=== PATIENT | female | born 1975 | race African-American/Black ===

== ENCOUNTER → 2022-09-26 13:50 | Outpatient (BNVA) | payer OTHER, SELFPAY | PROVIDERS: PCP Internal Medicine; Visit Provider Nurse Practitioner Family | DX: M51.36 Other intervertebral disc degeneration, lumbar region (principal); M54.16 Radiculopathy, lumbar region; M62.830 Muscle spasm of back; M47.816 Spondylosis without myelopathy or radiculopathy, lumbar region; E66.01 Morbid (severe) obesity due to excess calories; Z68.42 Body mass index [BMI] 45.0-49.9, adult | CPT/HCPCS: 99202 ==

== ENCOUNTER 2023-03-21 12:43 | Day surgery (SDC) | payer OTHER, SELFPAY ==
--- NOTE | 2023-02-13 11:52 | HO.ANESPROP2 ---
HPI - Anesthesia Eval Consult details Narrative: 47yo F for Right L5-S1 Transforaminal Epidural Steriod Injection PMFSH Active Problems Active Problems: All Active Problems (Updated 09/27/22 @ 22:18 by KRISTAN Restrepo) Lumbar spondylosis (Acute) Morbid obesity with BMI of 45.0-49.9, adult (Acute) Muscle spasm of back (Acute) Lumbar back pain with radiculopathy affecting right lower extremity (Acute) Lumbar degenerative disc disease (Acute) Past Medical History Medical History (Updated 09/27/22 @ 22:18 by KRISTAN Restrepo) Asthma Hypertension Iron deficiency anemia Social History Social History (Updated 09/26/22 @ 14:21 by Farzaneh Maldonado) Alcohol intake: current Alcohol type: wine Tobacco use type: Cigarette Meds Allergies Allergy/AdvReac Type Severity Reaction Status Date / Time lisinopril AdvReac Unknown Angioedema Verified 09/26/22 14:00 Home Medications Medication Instructions Recorded Confirmed Last Taken Type albuterol sulfate 90 mcg/actuation 2 puff inhalation Q6H PRN 09/26/22 Unknown History aerosol inhaler (ProAir HFA) amlodipine 5 mg tablet 5 mg PO DAILY 09/26/22 Unknown History ascorbic acid (vitamin C) 500 mg mg PO 09/26/22 Unknown History capsule docusate sodium 100 mg capsule 100 mg PO TID 09/26/22 Unknown History ferrous sulfate 325 mg (65 mg 325 mg PO DAILY 09/26/22 Unknown History iron) tablet (Feosol) fluticasone propionate 44 2 puff inhalation BID 09/26/22 Unknown History mcg/actuation HFA aerosol inhaler (Flovent HFA) naproxen 500 mg tablet 500 mg PO BID 09/26/22 Unknown History norethindrone 1 mg-ethinyl 1 tab PO DAILY 09/26/22 Unknown History estradiol 35 mcg tablet (Alyacen) oxycodone 5 mg capsule 5 mg PO TID PRN 09/26/22 Unknown History Exam Exam Date and Time: February 13, 2023 1152 Assessment and Plan Assessment Anesthesia Assessment: Chart Reviewed
[2023-03-20 06:44] VITALS: BMI 49.6
--- NOTE | 2023-03-20 09:52 | P.CONAN_ITS ---
Documented by User: Felipa Carver NP 03/20/23 09:53 HPI - Anesthesia Eval Consult details Narrative: 47yo F for Right L5-S1 Transforaminal Epidural Steriod Injection PMFSH Active Problems Active Problems: All Active Problems (Updated 09/27/22 @ 22:18 by KRISTAN Restrepo) Lumbar spondylosis (Acute) Morbid obesity with BMI of 45.0-49.9, adult (Acute) Muscle spasm of back (Acute) Lumbar back pain with radiculopathy affecting right lower extremity (Acute) Lumbar degenerative disc disease (Acute) Past Medical History Medical History Asthma Hypertension Iron deficiency anemia Surgical History Surgical History (Updated 03/21/23 @ 13:09 by Carri Savage RN) Hx of breast reduction, elective Social History Social History (Updated 09/26/22 @ 14:21 by Farzaneh Maldonado) Alcohol intake: current Alcohol type: wine Patient Tobacco Use Status: Never used Tobacco Tobacco use type: Cigarette Use of substances other than those prescribed or required for medical reasons: Yes Substance Use Type Other:: gummies Substance Use Frequency: Occasionally Are you DNR?: No Advance Directives: No Advance Directives Information Provided: Yes Meds Allergies Allergy/AdvReac Type Severity Reaction Status Date / Time lisinopril AdvReac Unknown Angioedema Verified 03/21/23 13:35 Home Medications Medication Instructions Recorded Confirmed Last Taken Type albuterol sulfate 90 mcg/actuation 2 puff inhalation Q6H PRN 09/26/22 03/21/23 Unknown History aerosol inhaler (ProAir HFA) Shortness Of Breath Or Wheezing amlodipine 5 mg tablet (Norvasc) 5 mg PO DAILY 09/26/22 03/21/23 Unknown History ascorbic acid (vitamin C) 500 mg 500 mg PO DAILY 09/26/22 03/21/23 Unknown History capsule docusate sodium 100 mg capsule 100 mg PO TID 09/26/22 03/21/23 Unknown History ferrous sulfate 325 mg (65 mg 325 mg PO DAILY 09/26/22 03/21/23 Unknown History iron) tablet (Feosol) fluticasone propionate 44 2 puff inhalation BID 09/26/22 03/21/23 Unknown History mcg/actuation HFA aerosol inhaler (Flovent HFA) naproxen 500 mg tablet 500 mg PO BID 09/26/22 03/21/23 Unknown History norethindrone 1 mg-ethinyl 1 tab PO DAILY 09/26/22 03/21/23 03/21/23 08:00 History estradiol 35 mcg tablet (Alyacen) Exam Height,Weight and Vital Signs: Height 5 ft 4 in Weight 131.088 kg Assessment and Plan Assessment Anesthesia Assessment: Chart Reviewed Documented by User: Jaime Guevara MD 03/21/23 14:02 [facility] Past Medical History Medical History Asthma Hypertension Iron deficiency anemia Family History Family history of problems with anesthesia: No Surgical History Surgical History (Updated 03/21/23 @ 13:09 by Carri Savage RN) Hx of breast reduction, elective History of Problems with Anesthesia: No Social History Social History (Updated 09/26/22 @ 14:21 by Farzaneh Maldonado) Alcohol intake: current Alcohol type: wine Patient Tobacco Use Status: Never used Tobacco Tobacco use type: Cigarette Use of substances other than those prescribed or required for medical reasons: Yes Substance Use Type Other:: gummies Substance Use Frequency: Occasionally Are you DNR?: No Advance Directives: No Advance Directives Information Provided: Yes Meds Allergies Allergy/AdvReac Type Severity Reaction Status Date / Time lisinopril AdvReac Unknown Angioedema Verified 03/21/23 13:35 Home Medications Medication Instructions Recorded Confirmed Last Taken Type albuterol sulfate 90 mcg/actuation 2 puff inhalation Q6H PRN 09/26/22 03/21/23 Unknown History aerosol inhaler (ProAir HFA) Shortness Of Breath Or Wheezing amlodipine 5 mg tablet (Norvasc) 5 mg PO DAILY 09/26/22 03/21/23 Unknown History ascorbic acid (vitamin C) 500 mg 500 mg PO DAILY 09/26/22 03/21/23 Unknown History capsule docusate sodium 100 mg capsule 100 mg PO TID 09/26/22 03/21/23 Unknown History ferrous sulfate 325 mg (65 mg 325 mg PO DAILY 09/26/22 03/21/23 Unknown History iron) tablet (Feosol) fluticasone propionate 44 2 puff inhalation BID 09/26/22 03/21/23 Unknown History mcg/actuation HFA aerosol inhaler (Flovent HFA) naproxen 500 mg tablet 500 mg PO BID 09/26/22 03/21/23 Unknown History norethindrone 1 mg-ethinyl 1 tab PO DAILY 09/26/22 03/21/23 03/21/23 08:00 History estradiol 35 mcg tablet (Alyacen) Exam Airway Mallampati Class: II TM Dist: >3cm Neck ROM: Full Assessment and Plan Assessment Anesthesia Assessment: Anesthesia Plan Discussed Final Anesthetic Review Family History of Problems with Anesthesia: No History of Problems with Anesthesia: No NPO: Yes ASA Class: III Final Preanesthetic Review: No Changes in Pt Med Stat, Meds/Allgs Chart Reviewed, Consent Obtained/Reviewed and Anes Risks/Benef Reviewed Patient Risk: Low Procedure Risk: Low Anesthetic Plan Anesthetic Plan: MAC: Disposition: Standard PACU
--- NOTE | ~2023-03-21 | FL_ITS ---
EXAMINATION: XR FLUOROSCOPY WITH IMAGES CLINICAL INFORMATION: L5-S1 TFESI. COMPARISON: None available. TECHNIQUE: Fluoroscopy Supervised By: Dr. Miguel Angel Stanton. Fluoroscopy Time: 0.4 minutes. Cumulative Dose: 35.5 mGy. DAP: 9.18 Gycm2. Images: 1. FINDINGS: Image demonstrates needle placement and contrast injection adjacent to the right lateral L5 vertebrae FL/FL guidance in OR IMPRESSION: Fluoroscopy guidance for pain management procedure
[2023-03-21 13:35] VITALS: BP 155/97; PULSE 82; RESP 16; TEMP 37.2; O2SAT 98; BMI 48.0
[2023-03-21 13:38] LABS: UPreg QC Valid YES; Urine Pregnancy NEGATIVE (NEGATIVE)
[2023-03-21] MEDS: Lactated Ringers 1,000 ML 100 ML IVCONT (13:51)
--- NOTE | 2023-03-21 15:24 | MHC.SHP ---
Pre-Procedural Eval Section A Date of Service: 03/21/23 The patient is an INPATIENT: No Changes since office visit: Yes Patient answered all questions The History & Physical has been completed within 30 days and I have reviewed it.: No Section B Chief Complaint: Radiculopathy, lumbar region Details of Present Illness: as above Relevant Family History (Specify if Yes): No Relevant Social History: None Present Medications: None Medical History: No relevant PMH History of Previous Operations: No relevant previous surgery Allergies: Allergies Allergy/AdvReac Type Severity Reaction Status Date / Time lisinopril AdvReac Unknown Angioedema Verified 03/21/23 13:35 Review of Systems Sugical H&P ROS: Negative: Cardiovascular, Neurological, Psychiatric, Hem-Onc, Allergic/Immunologic, Gastrointestinal, Genitourinary, Integumentary, Endocrine and Eyes/Ears/Nose/Throat and Yes, Specify: Constitution ( morbid obesity), Respiratory ( asthma) and Musculoskeletal ( disc degeneration lumbar, radiculopathy lumbar) Exam Surgical H&P Exam: Normal: HEENT, Normal: Heart, Normal: Lungs, Normal: Extremities, Normal: Skin and Normal: Neurological and Significant Findings: Abdomen ( enlarged due to intra-abdominal and s/q fat) Plan Diagnosis/Plan: Unchanged I have reviewed the history and physical and performed a pertinent physical examination on my patient. No changes have occurred unless specified. Time Spent With Patient Time: Total time managing care of this patient today __5__ minutes.
--- NOTE | 2023-03-21 16:31 | P.BOP_ITS ---
Brief Operative Note Date of Service: 03/21/23 Pre-op diagnosis: Radiculopathy lumbar Post-op diagnosis: same Procedure: transforaminal epidural steroid injection L5-S1 on the right Implants: none Surgeon: Miguel Angel Stanton MD Was an Ice Cream Machine Operator used for this Procedure?: No Estimated blood loss (mL): 0 Condition: stable Disposition: PACU
--- NOTE | 2023-03-21 16:33 | P.OP_ITS ---
Operative Note Operative Note Date of Service: 03/21/23 Narrative: transforaminal epidural steroid injection L5-S1 on the right. Informed consent was explained to the patient. Risks and benefits were explained to the patient. The patient was explained that performing this procedure under minimal sedation would be more safe compared to the procedure performed under deep sedation. Patient expressed understanding. Patient was brought to the operating room and positioned prone on the operating table. [employer] monitors were applied and patient started to be sedated. However under minimal sedation patient became restless, unable to stand still on the operating table, was wiggling on the operating table throughout the procedure. Unfortunately deep sedation needed to be administered to the patient in the order to complete the procedure. The lower back of the patient was prepped with ChloraPrep and draped with sterile utility towels. However because patient was restless the prep needed to be repeated and draped needed to be reapplied. Finally at the dip level of the sedation patient was moving very minimally. Time-out was performed delineating correct site and side of the procedure. C-arm was brought of the operating field and sq picture of the patient's L5 vertebra demonstrated on the screen. Superior articular process of S1 on the right image was obtained on the screen was tilting C-arm 25 degrees to the right from the sq image of the L5 vertebra. Lateral border of the superior articular process of S1 was chosen as the target of the in needle insertion. 22 gauge 5 in needle was inserted through the skin and that was advancing to were the lateral border of the superior articular process of the S1 on the right in tunnel vision fashion. However when tip of the needle gently contacted the bone of the lateral border of L5 it became clear to us that the entire length of the needle 5 in are in the patient's body and needle is inserted all the way to the hub. The 5 in needle was removed and 7 in needle was obtained on the field. The advancement was repeated with 7 in needle until the tip of the needle gently contacted lateral border of S1 superior articular process. At this moment needle deviated laterally, advanced 2-3 mm, and then tip of the needle deviated medially to were the foramina. When sq image of the L5 lumbar vertebra was obtained on the screen the tip of the needle was in the projection of the spinal column however it was not crossing over mid pedicular line. Injection of the contrast was performed Demonstrating perineural and epidural spread of the contrast. After that injection solution of the lidocaine 1% 4 cc mixed with Kenalog 30 mg was injected into the foramina. After that the needle was withdrawn sterile Band-Aid applied. The patient was taking to the PACU for the recovery.
[2023-03-21 16:39] VITALS: BP 128/84; PULSE 90; RESP 17; TEMP 36.3; O2SAT 99
[2023-03-21 16:54] VITALS: BP 134/70; PULSE 75; RESP 18; TEMP 36.4; O2SAT 98
== END 2023-03-21 17:10 | disposition home or self-care (01) ==
PROVIDERS: Nurse Practitioner; PCP Internal Medicine; Visit Provider Anesthesiology
PROC: (CPT 64483; principal; 2023-03-21 14:30)
DX: M54.16 Radiculopathy, lumbar region (principal); M51.36 Other intervertebral disc degeneration, lumbar region; M54.50 Low back pain, unspecified; M62.830 Muscle spasm of back; M47.816 Spondylosis without myelopathy or radiculopathy, lumbar region; E66.01 Morbid (severe) obesity due to excess calories; Z68.42 Body mass index [BMI] 45.0-49.9, adult; I10 Essential (primary) hypertension; D50.9 Iron deficiency anemia, unspecified; J45.909 Unspecified asthma, uncomplicated; Z79.51 Long term (current) use of inhaled steroids; Z79.899 Other long term (current) drug therapy; Z88.8 Allergy status to other drugs, medicaments and biological substances; Z87.828 Personal history of other (healed) physical injury and trauma
CPT/HCPCS: 64483; 81025; J2704; J2795; J3301; Q9965

== ENCOUNTER → 2023-03-21 12:43 | Outpatient (BNV) | payer OTHER, SELFPAY | PROVIDERS: PCP Internal Medicine; Visit Provider Anesthesiology | DX: M54.16 Radiculopathy, lumbar region (principal) | CPT/HCPCS: 64483 ==

== ENCOUNTER → 2023-04-24 08:32 | Outpatient (BNVA) | payer OTHER, SELFPAY | PROVIDERS: PCP Internal Medicine; Visit Provider Anesthesiology ==

== ENCOUNTER → 2023-04-24 08:54 | Outpatient (AMB) | payer OTHER, SELFPAY ==
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
== END | disposition home or self-care (01) ==
LOC: HO.PMC 08:32
PROVIDERS: PCP Internal Medicine; Visit Provider Anesthesiology
DX: M51.36 Other intervertebral disc degeneration, lumbar region (principal); M54.16 Radiculopathy, lumbar region; M62.830 Muscle spasm of back; E66.01 Morbid (severe) obesity due to excess calories; Z68.42 Body mass index [BMI] 45.0-49.9, adult; M47.816 Spondylosis without myelopathy or radiculopathy, lumbar region
CPT/HCPCS: 99214

== ENCOUNTER 2024-06-28 09:20 | Outpatient (AMB) | payer OTHER, SELFPAY ==
--- NOTE | 2024-06-28 09:30 | MHC.OFFVIS ---
Vital Signs 06/28/24 09:35 Height 5 ft 4 in Weight 257 lb 2 oz BMI 44.1 BP 204/97 H Blood Pressure Location Lt brachial Respiration 18 Pulse 65 Pulse Source Pulse Oximeter Pulse Oximetry (%) 95 Oxygen Delivery Method Room Air Intake Visit Reasons: Mid to Lower Back Pain TERRANCE 04/24/23 Allergies lisinopril Adverse Reaction (Unknown, Verified 03/21/23 13:35) Angioedema PFSH Medical History Asthma Hypertension Iron deficiency anemia Surgical History (Updated 03/21/23 @ 13:09 by Carri Savage, KARIME) Hx of breast reduction, elective Social History (Updated 09/26/22 @ 14:21 by Farzaneh Maldonado) Alcohol intake: current Alcohol type: wine Patient Tobacco Use Status: Never used Tobacco Tobacco use type: Cigarette Physical Exam Vital Signs: Last Vital Signs Pulse 65 06/28/24 09:35 Resp 18 06/28/24 09:35 BP 204/97 H 06/28/24 09:35 Pulse Ox 95 06/28/24 09:35 Oxygen Delivery Method Room Air 06/28/24 09:35 BMI result Body Mass Index 44.1 Assessment & Plan Assessment & Plan (1) Lumbar degenerative disc disease: Code(s): M51.36 - Other intervertebral disc degeneration, lumbar region Category: Medical (2) Lumbar back pain with radiculopathy affecting right lower extremity: Code(s): M54.16 - Radiculopathy, lumbar region Category: Medical (3) Muscle spasm of back: Code(s): M62.830 - Muscle spasm of back Category: Medical (4) Morbid obesity with BMI of 45.0-49.9, adult: Code(s): E66.01 - Morbid (severe) obesity due to excess calories; Z68.42 - Body mass index [BMI] 45.0-49.9, adult Category: Medical (5) Lumbar spondylosis: Code(s): M47.816 - Spondylosis without myelopathy or radiculopathy, lumbar region Category: Medical Plan Right L5-S1 TFESI with sedation only and fluoroscopy resulted in excellent pain relief. She reports pain radiating into the right lower extremity completely disappeared and she still reports mild numbness in the right toes. She is informed that we can continue those injections if her pain will come back. Her axial back pain may be related to spondylosis. However she has extensive very large uterine fibroids which in my opinion should be treated before we would need to assign the issue of the lower back pain to spondylosis. Medial branch block can be offered to the patient if fibroid pain is ruled out. Justification for interventional therapy: ? Patient with average pain > 6/10 ? Patient has exhausted conservative therapy, NSAIDs ? Patient cannot participate in physical therapy due to significant pain The risks, consequences, alternatives, and benefits of various treatment options were discussed with the patient in great detail, including conservative management, injections and procedures. I informed patient of the hyperglycemic effects of steroids. Coding Diagnoses Lumbar degenerative disc disease M51.36 Lumbar back pain with radiculopathy affecting right lower extremity M54.16 Muscle spasm of back M62.830 Morbid obesity with BMI of 45.0-49.9, adult E66.01; Z68.42 Lumbar spondylosis M47.816
[2024-06-28 09:35] VITALS: BP 204/97; PULSE 65; RESP 18; O2SAT 95; BMI 44.1
--- NOTE | 2024-06-28 09:40 | MHC.OFFVIS ---
Vital Signs 06/28/24 09:35 Height 5 ft 4 in Weight 257 lb 2 oz BMI 44.1 BP 204/97 H Blood Pressure Location Lt brachial Respiration 18 Pulse 65 Pulse Source Pulse Oximeter Pulse Oximetry (%) 95 Oxygen Delivery Method Room Air Intake Visit Reasons: Mid to Lower Back Pain TERRANCE 04/24/23 Allergies lisinopril Adverse Reaction (Unknown, Verified 03/21/23 13:35) Angioedema PFSH Medical History Asthma Hypertension Iron deficiency anemia Surgical History (Updated 03/21/23 @ 13:09 by Carri Savage, KARIME) Hx of breast reduction, elective Social History (Updated 09/26/22 @ 14:21 by Farzaneh Maldonado) Alcohol intake: current Alcohol type: wine Patient Tobacco Use Status: Never used Tobacco Tobacco use type: Cigarette Physical Exam Vital Signs: Last Vital Signs Pulse 65 06/28/24 09:35 Resp 18 06/28/24 09:35 BP 204/97 H 06/28/24 09:35 Pulse Ox 95 06/28/24 09:35 Oxygen Delivery Method Room Air 06/28/24 09:35 BMI result Body Mass Index 44.1 Assessment & Plan Assessment & Plan (1) Lumbar degenerative disc disease: Code(s): M51.36 - Other intervertebral disc degeneration, lumbar region Category: Medical (2) Lumbar back pain with radiculopathy affecting right lower extremity: Code(s): M54.16 - Radiculopathy, lumbar region Category: Medical (3) Muscle spasm of back: Code(s): M62.830 - Muscle spasm of back Category: Medical (4) Morbid obesity with BMI of 45.0-49.9, adult: Code(s): E66.01 - Morbid (severe) obesity due to excess calories; Z68.42 - Body mass index [BMI] 45.0-49.9, adult Category: Medical (5) Lumbar spondylosis: Code(s): M47.816 - Spondylosis without myelopathy or radiculopathy, lumbar region Category: Medical Coding Diagnoses Lumbar degenerative disc disease M51.36 Lumbar back pain with radiculopathy affecting right lower extremity M54.16 Muscle spasm of back M62.830 Morbid obesity with BMI of 45.0-49.9, adult E66.01; Z68.42 Lumbar spondylosis M47.810
--- NOTE | 2024-06-28 09:43 | MHC.OFFVIS ---
Vital Signs 06/28/24 09:35 06/28/24 09:48 06/28/24 09:48 06/28/24 09:50 Height 5 ft 4 in Weight 257 lb 2 oz BMI 44.1 44.1 BP 204/97 H 228/107 H 180/86 H Blood Pressure Location Lt brachial Lt brachial Rt radial Position Sitting Sitting Respiration 18 Pulse 65 Pulse Source Pulse Oximeter Pulse Oximetry (%) 95 Oxygen Delivery Method Room Air Comment bp recheck Intake Visit Reasons: Mid to Lower Back Pain TERRANCE 04/24/23 Allergies lisinopril Adverse Reaction (Unknown, Verified 06/28/24 09:45) Angioedema HPI Comments Details: Yoselin is very pleasant 48 years old female who presents in my office with complains on axial back pain. 03/21/2023 she received right transforaminal epidural steroid injection to address severe electric shock-like pain going into the right lower extremity. She reported that since then her pain is ?100% better ?, she no longer suffer from severe electric shock-like pain at night, her activity is improved, her mobility is so much better. However she reports pain in the projection of the sacral bone mostly to the left side. In the past she was presenting this complaint to me and at that time she had large uterine fibroids. To rule out possibility of uterine fibroids being a cause of her pain I recommended OBGYN appointment. She went for complete hysterectomy in August of 2023. Physical exam is as below. I suspected sacroiliitis and left SI joint dysfunction. I will schedule her for the left sacroiliac joint diagnostic injection without sedation. [facility] Medical History (Updated 06/28/24 @ 10:08 by Miguel Angel Stanton MD) Asthma Hypertension Iron deficiency anemia Surgical History (Updated 03/21/23 @ 13:09 by Carri Savage RN) Hx of breast reduction, elective Social History (Updated 09/26/22 @ 14:21 by Farzaneh Maldonado) Alcohol intake: current Alcohol type: wine Patient Tobacco Use Status: Never used Tobacco Tobacco use type: Cigarette Review of Systems Const All systems reviewed & are unremarkable except as noted in HPI and below Physical Exam Vital Signs: Last Vital Signs Pulse 65 06/28/24 09:35 Resp 18 06/28/24 09:35 BP 180/86 H 06/28/24 09:48 Pulse Ox 95 06/28/24 09:35 Oxygen Delivery Method Room Air 06/28/24 09:35 BMI result Body Mass Index 44.1 General: Appears afebrile. Alert and oriented. Mood and affect appropriate. Follows and participates in conversation appropriately. Respiratory effort is unlabored. No cough. Able to transition from sit to stand unassisted. Ambulates with bilaterally normal heel strike and toe off. General: Yes no CVA tenderness Back/Spine/Pelvis Other: Patient is able to walk and stand on heels and tip toes with mild difficulty on the right. Demonstrates good motor tone.Demonstrates 5/5 left and 4/5 right strength of quadriceps bilaterally as well as flexion/dorsiflexion of bilateral feet against resistance. 2+ pedal pulses bilaterally. Seated straight leg rise with dorsiflexion positive on the right. +2 patellar and +1 achilles reflexes bilaterally. Facet loading test positive bilaterally. Yoselin finger test equivocal on the left. Wm?s, Gaenslen, Pelvic compression and Stinchfield tests are positive on the left. No groin pain with I/E hip rotations. Valsalva maneuver negative. Back: no CVA tenderness and back tenderness Cervical Spine: cervical ROM normal and No Cervical spine tenderness Thoracic/Lumbar Spine: thoracic and lumbar spine normal to inspection, No Thoracic/lumbar spine scar(s), Lasegue's sign positive on the right and localized, pain with thoraco-lumbar ROM, paraspinal muscle tenderness, thoraco-lumbar ROM limited, No thoracic spinal tenderness and lumbar spinal tenderness Pelvis: buttock tenderness on the right and sciatic notch tenderness on the right Sacroiliac joints: bilaterally tender to palpation Results Reviewed Results Reviewed: MR LUMBAR SPINE WITHOUT CONTRAST 05/08/22 at [facility] CLINICAL INFORMATION: 46-year-old with lumbago and right sciatica. Technical Note: Images are degraded secondary to motion artifact and large body habitus limitations. FINDINGS: Coronal Alignment: Normal. Sagittal Alignment: Normal. Lumbosacral Junction: Normal. There are 5 [id number]-[id number] lumbar-type vertebral bodies. Vertebral Bodies: Well maintained with normal height. No compression fractures, anomalies or other deformities. Disc Spaces and Endplates: Mtfa-gr-qcwtngcb disc space height loss is noted with disc desiccation consistent with disc degenerative change. Zlhi-pq-kyzcestq disc space height loss at T11-T12 with disc desiccation and Schmorl''s nodes with minor spondylosis. Minimal disc desiccation at L4-L5 without significant disc space height loss. Spinal Canal: Tiny fibrolipoma of the filum terminale measuring less than 2 mm greatest cross-sectional diameter at the L4-L5 level. Bone Marrow: Diffusely hypointense marrow signal intensity seen throughout the osseous structures on T1-weighted imaging is noted which is nonspecific. No bone marrow edema or focally aggressive osseous lesion. Small benign vertebral hemangiomata seen at T12 and a probable lipid-poor benign vertebral hemangioma in the L2 vertebral body adjacent to the superior endplate. Conus Medullaris: Terminates at L1-L2. Morphology and signal is normal. Intradural Nerve Roots: Within normal limits. Spine Levels: L5-S1: Broad-based sdlaaht-aj-umifo subarticular extruded disc herniation with caudal migration impinging on the traversing right S1 nerve root, extending caudally to the pedicular level. No significant thecal sac encroachment. Moderately prominent epidural fat at this level. Mild facet arthropathy on the right. No significant neural foraminal stenosis. L4-L5: Very small left paramedian extruded disc fragment with cephalad migration just to the left of midline without neural impingement. Otherwise, normal disc contours. Mild facet arthropathy noted on the right without canal or neural foraminal stenosis. The remaining lumbar levels demonstrate normal disc contours. There is mild facet arthropathy on the left at L2-L3 and L1-L2. No significant spinal canal or neural foraminal stenosis. There is bilateral facet arthropathy at T11-T12 which is not imaged in the axial plane with cicj-lu-syiynddx bilateral neural foraminal stenosis at this level without canal stenosis. Paraspinal/Retroperitoneal: Incidental bulky enlarged uterus measuring 12.5 cm in maximum long axis in the sagittal plane containing multiple T2 hypointense masses, with the largest measuring 6 cm in the fundus and upper corpus and 8 cm in the corpus and lower uterine segment on the right. These findings suggest multiple uterine leiomyomata. Correlate with pelvic ultrasound. The paravertebral soft tissues appear unremarkable. Very limited visualization of the visualized retroperitoneal soft tissues structures. IMPRESSION: 1. Discogenic degenerative changes at T11-T12 and L5-S1 as discussed above with a central to right subarticular extruded disc herniation with caudal migration at L5-S1 with impingement on the traversing right S1 nerve root. 2. Multilevel bilateral facet arthropathy as described above without significant spinal canal or neuroforaminal stenosis. There is hdos-jn-zmffxgnj bilateral neural foraminal stenosis at T11-T12 which is not imaged in the axial plane. 3. Diffusely hypointense marrow signal intensity throughout the osseous structures which is nonspecific. Suggest correlation with CBC with differential and clinical history. Differential diagnostic considerations include obesity, smoking, chronic anemia and myelodysplastic or myeloproliferative disease. 4. Bulky uterus containing multiple T2 hypointense masses which may reflect multiple uterine leiomyomata. Recommend correlation with pelvic ultrasound. The [facility] staff will call to confirm receipt of this report with acknowledgement of the findings and any recommendations. Assessment & Plan Assessment & Plan (1) Lumbar degenerative disc disease: Code(s): M51.36 - Other intervertebral disc degeneration, lumbar region Category: Medical (2) Lumbar back pain with radiculopathy affecting right lower extremity: Code(s): M54.16 - Radiculopathy, lumbar region Category: Medical (3) Muscle spasm of back: Code(s): M62.830 - Muscle spasm of back Category: Medical (4) Morbid obesity with BMI of 45.0-49.9, adult: Code(s): E66.01 - Morbid (severe) obesity due to excess calories; Z68.42 - Body mass index [BMI] 45.0-49.9, adult Category: Medical (5) Lumbar spondylosis: Code(s): M47.816 - Spondylosis without myelopathy or radiculopathy, lumbar region Category: Medical (6) Sacroiliac joint dysfunction of left side: Code(s): M53.3 - Sacrococcygeal disorders, not elsewhere classified Category: Medical (7) Sacroiliitis: Code(s): M46.1 - Sacroiliitis, not elsewhere classified Category: Medical Plan Excellent results of transforaminal epidural steroid injection for the right radicular pain. Now the patient presents with mostly axial pain in the most lower portion of the lumbar spine. I suspected sacroiliitis. I suspected sacroiliac joint dysfunction on the left. I will schedule this patient for diagnostic left sacroiliac joint injection without sedation. Coding Level of Care Code Est Pt Level 3 (79474) Diagnoses Lumbar degenerative disc disease M51.36 Lumbar back pain with radiculopathy affecting right lower extremity M54.16 Muscle spasm of back M62.830 Morbid obesity with BMI of 45.0-49.9, adult E66.01; Z68.42 Lumbar spondylosis M47.816 Sacroiliac joint dysfunction of left side M53.3 Sacroiliitis M46.1
[2024-06-28 09:48] VITALS: BP 180/86; BP 228/107
[2024-06-28 09:50] VITALS: BMI 44.1
== END 2024-06-28 09:57 | disposition home or self-care (01) ==
PROVIDERS: PCP Internal Medicine; Visit Provider Anesthesiology
DX: M51.369 Other intervertebral disc degeneration, lumbar region without mention of lumbar back pain or lower extremity pain (principal); M54.16 Radiculopathy, lumbar region; M62.830 Muscle spasm of back; E66.01 Morbid (severe) obesity due to excess calories; Z68.42 Body mass index [BMI] 45.0-49.9, adult; M47.816 Spondylosis without myelopathy or radiculopathy, lumbar region; M53.3 Sacrococcygeal disorders, not elsewhere classified; M46.1 Sacroiliitis, not elsewhere classified
CPT/HCPCS: 99213

== ENCOUNTER → 2024-06-28 09:20 | Outpatient (BNVA) | payer OTHER, SELFPAY | PROVIDERS: PCP Internal Medicine; Visit Provider Anesthesiology | DX: M51.360 Other intervertebral disc degeneration, lumbar region with discogenic back pain only (principal); M54.16 Radiculopathy, lumbar region; M62.830 Muscle spasm of back; M47.816 Spondylosis without myelopathy or radiculopathy, lumbar region; M53.3 Sacrococcygeal disorders, not elsewhere classified; M46.1 Sacroiliitis, not elsewhere classified; E66.01 Morbid (severe) obesity due to excess calories; Z68.41 Body mass index [BMI] 40.0-44.9, adult | CPT/HCPCS: 99212 ==

== ENCOUNTER 2024-08-17 06:35 | Outpatient (REF) | payer OTHER, SELFPAY ==
--- NOTE | ~2024-08-17 | FL_ITS ---
EXAMINATION: FL GUIDANCE ONLY HISTORY: M53.3 - Sacrococcygeal disorders, not elsewhere classified COMPARISON: None available. TECHNIQUE: Fluoroscopy time: 0.1 minutes. Cumulative Dose: 2.95 mGy. DAP: 0.0330 mGym2 Images: 2. FINDINGS: Images demonstrate a needle and contrast material in the region of the left sacroiliac joint. FL/FL guidance in treatment room IMPRESSION: Fluoroscopy during procedure. Please see procedure report for additional information. Electronically signed by: Jorge Butt MD 08/18/2024 04:42 PM EDT
== END 2024-08-17 06:36 | disposition home or self-care (01) ==
LOC: CF 06:35
PROVIDERS: Visit Provider Anesthesiology
DX: M53.3 Sacrococcygeal disorders, not elsewhere classified (principal)
CPT/HCPCS: 27096; J2003; J2795; Q9967

== ENCOUNTER 2024-08-17 14:04 | Outpatient (AMB) | payer OTHER, SELFPAY ==
[2024-08-17 14:11] VITALS: BP 168/98; PULSE 73; RESP 16; O2SAT 97
--- NOTE | 2024-08-17 14:11 | MHC.OFFVIS ---
Vital Signs 08/17/24 14:11 08/17/24 14:31 BP 168/98 H 150/86 H Blood Pressure Location Rt brachial Lt brachial Position Sitting Sitting Respiration 16 16 Pulse 73 64 Pulse Source Pulse Oximeter Pulse Oximeter Pulse Oximetry (%) 97 96 Oxygen Delivery Method Room Air Room Air Intake Visit Reasons: LEFT DIAGNOSTIC SIJ INJECTION Eating Disorder Specialist Required: No Allergies lisinopril Adverse Reaction (Unknown, Verified 08/17/24 14:12) Angioedema Medication List - Last Reconciled 08/17/24 by Leanne Dunn LPN albuterol sulfate 90 mcg/actuation (ProAir HFA) 2 puffs inhalation Q6H PRN amlodipine (Norvasc) 5 mg PO DAILY ascorbic acid (vitamin C) 500 mg PO DAILY bupropion HCl XL (Wellbutrin XL) 300 mg PO QAM citalopram (Celexa) 20 mg PO DAILY docusate sodium 100 mg PO TID ferrous sulfate (Feosol) 325 mg PO DAILY fluticasone propionate 44 mcg/actuation (Flovent HFA) 2 puffs inhalation BID naproxen 500 mg PO BID PFSH Medical History (Updated 06/28/24 @ 10:08 by Miguel Angel Stanton MD) Asthma Hypertension Iron deficiency anemia Surgical History (Updated 03/21/23 @ 13:09 by Carri Savage RN) Hx of breast reduction, elective Social History (Updated 09/26/22 @ 14:21 by Farzaneh Maldonado) Alcohol intake: current Alcohol type: wine Patient Tobacco Use Status: Never used Tobacco Tobacco use type: Cigarette Physical Exam Vital Signs: Last Vital Signs Pulse 64 08/17/24 14:31 Resp 16 08/17/24 14:31 BP 150/86 H 08/17/24 14:31 Pulse Ox 96 08/17/24 14:31 Oxygen Delivery Method Room Air 08/17/24 14:31 Assessment & Plan Assessment & Plan (1) Sacroiliac joint dysfunction of left side: Code(s): M53.3 - Sacrococcygeal disorders, not elsewhere classified Category: Medical Plan Left diagnostic sacroiliac joint injection Informed consent was explained thoroughly to the patient.? All questions about benefits and risks for the procedure were answered. Patient came to the operating room she was positioned prone on the operating table with the pillow under her abdomen.? Time-out was performed delineating correct site and side of the procedure name and date of of the patient. Her lower back and buttocks was prepped with ChloraPrep prepped and draped with sterile towels.C-arm was brought over the operating field and sq picture of patient's pelvis was demonstrated on the screen.? For the left joint tilting C-arm contralateral to the site of the joint of the patient the most posterior portion of the joints were superimposed of the anterior portion of the joint . Skin was injected in the projection of the joint slightly medial to the location of the joint with 25 gauge 1/2 inch needle using local lidocaine 2% mixed with ropivacaine 0.5% one-to-one 2-3 cc. After that 22 gauge 3 and 1/2 inch needle was driven to the left joint in tunnel vision fashion.? When needle entered the joint capsule injection of the contrast was performed demonstrating intra-articular and minimally periarticular spread of the contrast.? After that 5 mls of ropivacaine 0.5% was injected into each joint.? Upon completion of the injections the needles were removed and pressure were applied.? Sterile dressing was applied. Orders: Orders FL guidance in treatment room Today M53.3 - Sacrococcygeal disorders, not elsewhere classified Coding Level of Care Code Procedure Only Diagnoses Sacroiliac joint dysfunction of left side M53.3
[2024-08-17 14:31] VITALS: BP 150/86; PULSE 64; RESP 16; O2SAT 96
== END 2024-08-17 14:29 | disposition home or self-care (01) ==
LOC: HO.PMCPRC 14:04
PROVIDERS: PCP Internal Medicine; Visit Provider Anesthesiology
DX: M53.3 Sacrococcygeal disorders, not elsewhere classified (principal)
CPT/HCPCS: 27096

== ENCOUNTER 2024-08-26 09:48 | Outpatient (AMB) | payer OTHER, SELFPAY ==
[2024-08-26 10:15] VITALS: BP 147/81; PULSE 59; RESP 16; O2SAT 98; BMI 43.4
--- NOTE | 2024-08-26 10:15 | A.OFFVIS_ITS ---
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 Allergies lisinopril Adverse Reaction (Unknown, Verified 08/26/24 10:16) Angioedema Medication List - Last Reconciled 08/26/24 by Leanne Dunn LPN albuterol sulfate 90 mcg/actuation (ProAir HFA) 2 puffs inhalation Q6H PRN amlodipine (Norvasc) 5 mg PO DAILY ascorbic acid (vitamin C) 500 mg PO DAILY bupropion HCl XL (Wellbutrin XL) 300 mg PO QAM citalopram (Celexa) 20 mg PO DAILY diclofenac potassium 50 mg PO BID docusate sodium 100 mg PO TID estradiol (Vivelle-Dot) patches transdermal ferrous sulfate (Feosol) 325 mg PO DAILY fluticasone propionate 44 mcg/actuation (Flovent HFA) 2 puffs inhalation BID lorazepam 1 mg PO BID HPI Comments Details: Yoselin is very pleasant 48 years old female who presents in my office with complains on axial back pain. she went for diagnostic sacroiliac joint injection on the left and she reported complete pain relief for 9 hours, 100% pain improvement. The pain started to come back only at the night of the day of the injection, the pain was moderate for the next few days after the procedure. Now the pain starting to come back and she wants me to perform therapeutic left SI joint injection. 03/21/2023 she received right transforaminal epidural steroid injection to address severe electric shock-like pain going into the right lower extremity. She [id number]% pain improvement for the past 2 years. However she also stated now that her injection would need to be repeated. After therapeutic sacroiliac joint injection I will schedule her for the therapeutic right transforaminal epidural steroid injection. [facility] Medical History (Updated 06/28/24 @ 10:08 by Miguel Angel Stanton MD) Asthma Hypertension Iron deficiency anemia Surgical History (Updated 03/21/23 @ 13:09 by Carri Savage RN) Hx of breast reduction, elective Social History (Updated 09/26/22 @ 14:21 by Farzaneh Maldonado) Alcohol intake: current Alcohol type: wine Patient Tobacco Use Status: Never used Tobacco Tobacco use type: Cigarette Review of Systems Const All systems reviewed & are unremarkable except as noted in HPI and below Physical Exam Vital Signs: Last Vital Signs Pulse 59 08/26/24 10:15 Resp 16 08/26/24 10:15 BP 147/81 H 08/26/24 10:15 Pulse Ox 98 08/26/24 10:15 Oxygen Delivery Method Room Air 08/26/24 10:15 BMI result Body Mass Index 43.4 General: Appears afebrile. Alert and oriented. Mood and affect appropriate. Follows and participates in conversation appropriately. Respiratory effort is unlabored. No cough. Able to transition from sit to stand unassisted. Ambulates with bilaterally normal heel strike and toe off. General: Yes no CVA tenderness Back/Spine/Pelvis Other: Patient is able to walk and stand on heels and tip toes with mild difficulty on the right. Demonstrates good motor tone.Demonstrates 5/5 left and 4/5 right strength of quadriceps bilaterally as well as flexion/dorsiflexion of bilateral feet against resistance. 2+ pedal pulses bilaterally. Seated straight leg rise with dorsiflexion positive on the right. +2 patellar and +1 achilles reflexes bilaterally. Facet loading test positive bilaterally. Yoselin finger test equivocal on the left. Wm?s, Gaenslen, Pelvic compression and Stinchfield tests are positive on the left. No groin pain with I/E hip rotations. Valsalva maneuver negative.SLR is positive on the right, Lasegue test is positive on the right. Back: no CVA tenderness and back tenderness Cervical Spine: cervical ROM normal and No Cervical spine tenderness Thoracic/Lumbar Spine: thoracic and lumbar spine normal to inspection, No Thoracic/lumbar spine scar(s), Lasegue's sign positive on the right and localized, pain with thoraco-lumbar ROM, paraspinal muscle tenderness, thoraco- lumbar ROM limited, No thoracic spinal tenderness and lumbar spinal tenderness Pelvis: buttock tenderness on the right and sciatic notch tenderness on the right Sacroiliac joints: bilaterally tender to palpation Results Reviewed Results Reviewed: MR LUMBAR SPINE WITHOUT CONTRAST 05/08/22 at [facility] CLINICAL INFORMATION: 46-year-old with lumbago and right sciatica. Technical Note: Images are degraded secondary to motion artifact and large body habitus limitations. FINDINGS: Coronal Alignment: Normal. Sagittal Alignment: Normal. Lumbosacral Junction: Normal. There are 5 [id number] lumbar-type vertebral bodies. Vertebral Bodies: Well maintained with normal height. No compression fractures, anomalies or other deformities. Disc Spaces and Endplates: Ltdn-nn-howeksld disc space height loss is noted with disc desiccation consistent with disc degenerative change. Gwex-dt-sfneywel disc space height loss at T11-T12 with disc desiccation and Schmorl''s nodes with minor spondylosis. Minimal disc desiccation at L4-L5 without significant disc space height loss. Spinal Canal: Tiny fibrolipoma of the filum terminale measuring less than 2 mm greatest cross-sectional diameter at the L4-L5 level. Bone Marrow: Diffusely hypointense marrow signal intensity seen throughout the osseous structures on T1-weighted imaging is noted which is nonspecific. No bone marrow edema or focally aggressive osseous lesion. Small benign vertebral hemangiomata seen at T12 and a probable lipid-poor benign vertebral hemangioma in the L2 vertebral body adjacent to the superior endplate. Conus Medullaris: Terminates at L1-L2. Morphology and signal is normal. Intradural Nerve Roots: Within normal limits. Spine Levels: L5-S1: Broad-based zbepvaj-mp-ggcvj subarticular extruded disc herniation with caudal migration impinging on the traversing right S1 nerve root, extending caudally to the pedicular level. No significant thecal sac encroachment. Moderately prominent epidural fat at this level. Mild facet arthropathy on the right. No significant neural foraminal stenosis. L4-L5: Very small left paramedian extruded disc fragment with cephalad migration just to the left of midline without neural impingement. Otherwise, normal disc contours. Mild facet arthropathy noted on the right without canal or neural foraminal stenosis. The remaining lumbar levels demonstrate normal disc contours. There is mild facet arthropathy on the left at L2-L3 and L1-L2. No significant spinal canal or neural foraminal stenosis. There is bilateral facet arthropathy at T11-T12 which is not imaged in the axial plane with [id number]-[id number]-twkghnnz bilateral neural foraminal stenosis at this level without canal stenosis. Paraspinal/Retroperitoneal: Incidental bulky enlarged uterus measuring 12.5 cm in maximum long axis in the sagittal plane containing multiple T2 hypointense masses, with the largest measuring 6 cm in the fundus and upper corpus and 8 cm in the corpus and lower uterine segment on the right. These findings suggest multiple uterine leiomyomata. Correlate with pelvic ultrasound. The paravertebral soft tissues appear unremarkable. Very limited visualization of the visualized retroperitoneal soft tissues structures. IMPRESSION: 1. Discogenic degenerative changes at T11-T12 and L5-S1 as discussed above with a central to right subarticular extruded disc herniation with caudal migration at L5-S1 with impingement on the traversing right S1 nerve root. 2. Multilevel bilateral facet arthropathy as described above without significant spinal canal or neuroforaminal stenosis. There is dfmo-vc-sfodibgq bilateral neural foraminal stenosis at T11-T12 which is not imaged in the axial plane. 3. Diffusely hypointense marrow signal intensity throughout the osseous structures which is nonspecific. Suggest correlation with CBC with differential and clinical history. Differential diagnostic considerations include obesity, smoking, chronic anemia and myelodysplastic or myeloproliferative disease. 4. Bulky uterus containing multiple T2 hypointense masses which may reflect multiple uterine leiomyomata. Recommend correlation with pelvic ultrasound. The [facility] staff will call to confirm receipt of this report with acknowledgement of the findings and any recommendations. Assessment & Plan Assessment & Plan (1) Lumbar degenerative disc disease: Code(s): M51.36 - Other intervertebral disc degeneration, lumbar region Category: Medical (2) Lumbar back pain with radiculopathy affecting right lower extremity: Code(s): M54.16 - Radiculopathy, lumbar region Category: Medical (3) Muscle spasm of back: Code(s): M62.830 - Muscle spasm of back Category: Medical (4) Morbid obesity with BMI of 45.0-49.9, adult: Code(s): E66.01 - Morbid (severe) obesity due to excess calories; Z68.42 - Body mass index [BMI] 45.0-49.9, adult Category: Medical (5) Lumbar spondylosis: Code(s): M47.816 - Spondylosis without myelopathy or radiculopathy, lumbar region Category: Medical (6) Sacroiliac joint dysfunction of left side: Code(s): M53.3 - Sacrococcygeal disorders, not elsewhere classified Category: Medical (7) Sacroiliitis: Code(s): M46.1 - Sacroiliitis, not elsewhere classified Category: Medical Plan Excellent results of transforaminal epidural steroid injection for the right radicular pain. Now this pain is starting to come back. the patient wants me to repeat transforaminal epidural steroid injection. However she also had diagnostic left-sided sacroiliac joint injection and she reported 100 % pain relief after the procedure. now that her pain is coming back she wants me 1st to perform therapeutic sacroiliac joint injection on the left. After the injection she will give me a call and we will schedule her for the transforaminal injection on the right. Coding Level of Care Code Est Pt Level 3 (54812) Diagnoses Lumbar degenerative disc disease M51.36 Lumbar back pain with radiculopathy affecting right lower extremity M54.16 Muscle spasm of back M62.830 Morbid obesity with BMI of 45.0-49.9, adult E66.01; Z68.42 Lumbar spondylosis M47.816 Sacroiliac joint dysfunction of left side M53.3 Sacroiliitis M46.1
== END 2024-08-26 10:27 | disposition home or self-care (01) ==
LOC: HO.PMC 09:49
PROVIDERS: PCP Internal Medicine; Visit Provider Anesthesiology
DX: M51.369 Other intervertebral disc degeneration, lumbar region without mention of lumbar back pain or lower extremity pain (principal); M54.16 Radiculopathy, lumbar region; M62.830 Muscle spasm of back; E66.01 Morbid (severe) obesity due to excess calories; Z68.42 Body mass index [BMI] 45.0-49.9, adult; M47.816 Spondylosis without myelopathy or radiculopathy, lumbar region; M53.3 Sacrococcygeal disorders, not elsewhere classified; M46.1 Sacroiliitis, not elsewhere classified
CPT/HCPCS: 99213

== ENCOUNTER → 2024-08-26 09:48 | Outpatient (BNVA) | payer OTHER, SELFPAY | PROVIDERS: PCP Internal Medicine; Visit Provider Anesthesiology | DX: M51.360 Other intervertebral disc degeneration, lumbar region with discogenic back pain only (principal); M62.830 Muscle spasm of back; M47.26 Other spondylosis with radiculopathy, lumbar region; M53.3 Sacrococcygeal disorders, not elsewhere classified; M46.1 Sacroiliitis, not elsewhere classified; E66.01 Morbid (severe) obesity due to excess calories; Z68.42 Body mass index [BMI] 45.0-49.9, adult | CPT/HCPCS: 99212 ==

== ENCOUNTER 2024-10-26 06:13 | Outpatient (REF) | payer OTHER, SELFPAY ==
--- NOTE | ~2024-10-26 | FL_ITS ---
EXAMINATION: FL GUIDANCE ONLY HISTORY: M53.3 - Sacrococcygeal disorders, not elsewhere classified COMPARISON: None available. TECHNIQUE: Fluoroscopy time: 0.1 minutes. Cumulative Dose: 4.38 mGy. DAP: 0.0351 mGym2 Images: 2. FINDINGS: Fluoroscopic spot films of the left hemipelvis demonstrate a needle and contrast material in the region of the sacroiliac joint. FL/FL guidance in treatment room IMPRESSION: Fluoroscopy during procedure. Please see procedure report for additional information. Electronically signed by: Jorge Butt MD 10/26/2024 09:46 AM EDT
== END 2024-10-26 06:14 | disposition home or self-care (01) ==
LOC: CF 06:13
PROVIDERS: Visit Provider Anesthesiology
DX: M46.1 Sacroiliitis, not elsewhere classified (principal); M53.3 Sacrococcygeal disorders, not elsewhere classified
CPT/HCPCS: 27096; J2003; J2795; J3301; Q9967

== ENCOUNTER 2024-10-26 09:23 | Outpatient (AMB) | payer OTHER, SELFPAY ==
--- NOTE | 2024-10-26 09:28 | A.OFFVIS_ITS ---
Vital Signs 10/26/24 09:32 10/26/24 09:44 Height 5 ft 4 in Weight 253 lb BMI 43.4 BP 118/63 145/82 H Blood Pressure Location Lt radial Lt brachial Position Sitting Sitting Respiration 16 18 Pulse 80 80 Pulse Source Pulse Oximeter Pulse Oximeter Pulse Oximetry (%) 97 98 Oxygen Delivery Method Room Air Room Air Intake Visit Reasons: LEFT THERAPEUTIC SIJ INJECTION Allergies lisinopril Adverse Reaction (Unknown, Verified 08/26/24 10:16) Angioedema PFSH Medical History (Updated 06/28/24 @ 10:08 by Miguel Angel Stanton MD) Asthma Hypertension Iron deficiency anemia Surgical History (Updated 03/21/23 @ 13:09 by Carri Savage RN) Hx of breast reduction, elective Social History (Updated 09/26/22 @ 14:21 by Farzaneh Maldonado) Alcohol intake: current Alcohol type: wine Patient Tobacco Use Status: Never used Tobacco Tobacco use type: Cigarette Physical Exam Vital Signs: Last Vital Signs Pulse 80 10/26/24 09:44 Resp 18 10/26/24 09:44 BP 145/82 H 10/26/24 09:44 Pulse Ox 98 10/26/24 09:44 Oxygen Delivery Method Room Air 10/26/24 09:44 BMI result Body Mass Index 43.4 Assessment & Plan Assessment & Plan (1) Sacroiliac joint dysfunction of left side: Code(s): M53.3 - Sacrococcygeal disorders, not elsewhere classified Category: Medical (2) Sacroiliitis: Code(s): M46.1 - Sacroiliitis, not elsewhere classified Category: Medical Plan Left therapeutic sacroiliac joint injection. Yoselin is very pleasant 48 years old female who came today in the injection area to receive therapeutic left sacroiliac joint injection. Informed consent was explained to the patient. Risks and benefits were known to the patient. The patient was positioned prone on operating table with pillow under the abdomen. The lower back of the patient was prepped with ChloraPrep and draped with steril e self adhesive utility towels. C-arm was brought over the operating field. The image of the left sacroiliac joint was demonstrated on the screen. Tilting machine contralateral to the site of the joint to the right 20 degrees the posterior portion of the sacroiliac joint was superimposed over the anterior portion of the sacroiliac joint silhouette. The local anesthetic mixture of lidocaine 2% mixed with ropivacaine 0.5% one-to-one was injected slightly medial to the projection of the silhouette of the join to the skin forming a skin wheal. After that 22 gauge 3-1/2 inch needle was inserted through the skin wheal and advanced to were the silhouette of the joint in tunnel vision fashion. When needle entered the silhouette of the joint injection of the contrast performed delineating arthrogram. After that injection of the ropivacaine 0.5% 4 mL mixed with Kenalog 40 mg was performed into the joint. The patient tolerated injection well. The needle was withdrawn Band-Aid was applied. She was taken outside of the operating room to recovery room where she recovered uneventfully. Orders: Orders FL guidance in treatment room Today M53.3 - Sacrococcygeal disorders, not elsewhere classified Coding Level of Care Code Procedure Only Diagnoses Sacroiliac joint dysfunction of left side M53.3 Sacroiliitis M46.1
[2024-10-26 09:32] VITALS: BP 118/63; PULSE 80; RESP 16; O2SAT 97; BMI 43.4
[2024-10-26 09:44] VITALS: BP 145/82; PULSE 80; RESP 18; O2SAT 98
== END 2024-10-26 09:44 | disposition home or self-care (01) ==
LOC: HO.PMCPRC 09:23
PROVIDERS: PCP Internal Medicine; Visit Provider Anesthesiology
DX: M53.3 Sacrococcygeal disorders, not elsewhere classified (principal); M46.1 Sacroiliitis, not elsewhere classified
CPT/HCPCS: 27096

== ENCOUNTER 2024-12-24 09:40 | Outpatient (AMB) | payer MEDICAID, SELFPAY ==
--- NOTE | 2024-12-24 09:46 | MHC.OFFVIS ---
Vital Signs 12/24/24 09:47 Height 5 ft 4 in Weight 253 lb BMI 43.4 BP 143/71 H Blood Pressure Location Lt brachial Position Sitting Respiration 18 Pulse 79 Pulse Source Pulse Oximeter Pulse Oximetry (%) 97 Oxygen Delivery Method Room Air Intake Visit Reasons: (L)THERA SIJ INJ/ Lumbar TFESI Proc Discussion Sr. Vendor Management Associate Required: No Allergies lisinopril Adverse Reaction (Unknown, Verified 12/24/24 09:46) Angioedema HPI Comments Details: The patient is a 49-year-old female presenting with sacroiliac joint dysfunction and lumbar radiculopathy. The sacroiliac joint dysfunction was addressed with a therapeutic injection on October 26, which provided significant relief, reducing her pain from a pre-procedure level of 12/10 to an average of 4/10 post-procedure. The pain is exacerbated by certain movements and positions, but overall, there is a 70% improvement in her symptoms. The patient also reports lumbar radiculopathy, with pain radiating down the right leg to the toes, accompanied by numbness and tingling, particularly during prolonged driving or stair climbing. These symptoms have persisted despite previous interventions, including an epidural steroid injection in March 2023. Additionally, the patient has a history of knee osteoarthritis, confirmed by recent x-rays showing mild degeneration, contributing to balance issues and difficulty with stairs. She has not yet pursued physical therapy or other interventions for her knees. - Pain onset: Chronic, exacerbated by certain movements and positions - Pain quality: Radiating down the right leg to the toes, with numbness and tingling - Pain location: Sacroiliac joint and lumbar region - Exacerbating factors: Prolonged driving, stair climbing - Relieving factors: Therapeutic sacroiliac joint injection - Affect: Pain impacts daily activities, causing difficulty with prolonged driving and stair climbing - Analgesia: Post-injection pain level reduced to 4 from 12 - Adverse Effects: No adverse effects from current pain management reported - Activities of Daily Living: Pain interferes with driving and stair climbing - Aberrant Drug Related Behaviors: No aberrant behaviors reported [facility] Medical History (Updated 06/28/24 @ 10:08 by Miguel Angel Stanton MD) Asthma Hypertension Iron deficiency anemia Surgical History (Updated 03/21/23 @ 13:09 by Carri Savage RN) Hx of breast reduction, elective Social History (Updated 09/26/22 @ 14:21 by Farzaneh Arzate Alcohol intake: current Alcohol type: wine Patient Tobacco Use Status: Never used Tobacco Tobacco use type: Cigarette Review of Systems Const Details: - Musculoskeletal: Reports pain in sacroiliac joint and lumbar region, numbness and tingling in right leg - Neurological: Reports numbness and tingling in right leg, denies shooting pains - General: Denies any new symptoms or changes in health status Physical Exam Exam Exam: General: awake, alert, oriented. Answers questions appropriately. Fully engaged in examination. Skin: warm, dry, intact HEENT: Normocephalic. Hearing intact. Cardiac: External chest normal in appearance. Respiratory: No cough, audible wheezing or stridor. Abdomen: without gross distension. MS: No obvious swelling or deformities. Able to transition from sit to stand unassisted. Ambulates with bilaterally normal heel strike and toe off Neurological: Oriented to person, place, time and situation. Thought process intact. No gait abnormalities appreciated. Psychiatric: Appropriate mood and affect. Good judgment and insight. Vital Signs: Last Vital Signs Pulse 79 12/24/24 09:47 Resp 18 12/24/24 09:47 BP 143/71 H 12/24/24 09:47 Pulse Ox 97 12/24/24 09:47 Oxygen Delivery Method Room Air 12/24/24 09:47 BMI result Body Mass Index 43.4 Results Reviewed Results Reviewed: MR LUMBAR SPINE WITHOUT CONTRAST 05/08/22 at [facility] CLINICAL INFORMATION: 46-year-old with lumbago and right sciatica. Technical Note: Images are degraded secondary to motion artifact and large body habitus limitations. FINDINGS: Coronal Alignment: Normal. Sagittal Alignment: Normal. Lumbosacral Junction: Normal. There are 5 pvt-kie-lzospas lumbar-type vertebral bodies. Vertebral Bodies: Well maintained with normal height. No compression fractures, anomalies or other deformities. Disc Spaces and Endplates: Efjs-ud-ultlnzzd disc space height loss is noted with disc desiccation consistent with disc degenerative change. Mjmh-ch-vqzwmhwz disc space height loss at T11-T12 with disc desiccation and Schmorl''s nodes with minor spondylosis. Minimal disc desiccation at L4-L5 without significant disc space height loss. Spinal Canal: Tiny fibrolipoma of the filum terminale measuring less than 2 mm greatest cross-sectional diameter at the L4-L5 level. Bone Marrow: Diffusely hypointense marrow signal intensity seen throughout the osseous structures on T1-weighted imaging is noted which is nonspecific. No bone marrow edema or focally aggressive osseous lesion. Small benign vertebral hemangiomata seen at T12 and a probable lipid-poor benign vertebral hemangioma in the L2 vertebral body adjacent to the superior endplate. Conus Medullaris: Terminates at L1-L2. Morphology and signal is normal. Intradural Nerve Roots: Within normal limits. Spine Levels: L5-S1: Broad-based hekkmxv-sn-lrsjd subarticular extruded disc herniation with caudal migration impinging on the traversing right S1 nerve root, extending caudally to the pedicular level. No significant thecal sac encroachment. Moderately prominent epidural fat at this level. Mild facet arthropathy on the right. No significant neural foraminal stenosis. L4-L5: Very small left paramedian extruded disc fragment with cephalad migration just to the left of midline without neural impingement. Otherwise, normal disc contours. Mild facet arthropathy noted on the right without canal or neural foraminal stenosis. The remaining lumbar levels demonstrate normal disc contours. There is mild facet arthropathy on the left at L2-L3 and L1-L2. No significant spinal canal or neural foraminal stenosis. There is bilateral facet arthropathy at T11-T12 which is not imaged in the axial plane with nzjq-zn-oyslwdkv bilateral neural foraminal stenosis at this level without canal stenosis. Paraspinal/Retroperitoneal: Incidental bulky enlarged uterus measuring 12.5 cm in maximum long axis in the sagittal plane containing multiple T2 hypointense masses, with the largest measuring 6 cm in the fundus and upper corpus and 8 cm in the corpus and lower uterine segment on the right. These findings suggest multiple uterine leiomyomata. Correlate with pelvic ultrasound. The paravertebral soft tissues appear unremarkable. Very limited visualization of the visualized retroperitoneal soft tissues structures. IMPRESSION: 1. Discogenic degenerative changes at T11-T12 and L5-S1 as discussed above with a central to right subarticular extruded disc herniation with caudal migration at L5-S1 with impingement on the traversing right S1 nerve root. 2. Multilevel bilateral facet arthropathy as described above without significant spinal canal or neuroforaminal stenosis. There is lztc-wa-sygpdzom bilateral neural foraminal stenosis at T11-T12 which is not imaged in the axial plane. 3. Diffusely hypointense marrow signal intensity throughout the osseous structures which is nonspecific. Suggest correlation with CBC with differential and clinical history. Differential diagnostic considerations include obesity, smoking, chronic anemia and myelodysplastic or myeloproliferative disease. 4. Bulky uterus containing multiple T2 hypointense masses which may reflect multiple uterine leiomyomata. Recommend correlation with pelvic ultrasound. The [facility] staff will call to confirm receipt of this report with acknowledgement of the findings and any recommendations. Assessment & Plan Assessment & Plan (1) Lumbar degenerative disc disease: Code(s): M51.36 - Other intervertebral disc degeneration, lumbar region Category: Medical (2) Lumbar back pain with radiculopathy affecting right lower extremity: Code(s): M54.16 - Radiculopathy, lumbar region Category: Medical (3) Muscle spasm of back: Code(s): M62.830 - Muscle spasm of back Category: Medical (4) Morbid obesity with BMI of 45.0-49.9, adult: Code(s): E66.01 - Morbid (severe) obesity due to excess calories; Z68.42 - Body mass index [BMI] 45.0-49.9, adult Category: Medical (5) Lumbar spondylosis: Code(s): M47.816 - Spondylosis without myelopathy or radiculopathy, lumbar region Category: Medical (6) Sacroiliac joint dysfunction of left side: Code(s): M53.3 - Sacrococcygeal disorders, not elsewhere classified Category: Medical (7) Sacroiliitis: Code(s): M46.1 - Sacroiliitis, not elsewhere classified Category: Medical Plan The plan includes scheduling a repeat epidural steroid injection for the lumbar region to address the persistent radiculopathy symptoms. The patient is advised to bring a copy of her knee x-rays for further evaluation, and physical therapy is recommended as a potential intervention for her knee osteoarthritis. The patient is also informed about the need to limit steroid injections to avoid potential adverse effects. Will schedule for right L5-S1 transforaminal epidural steroid injection under fluoroscopy guidance with local anesthetic. I discussed with the patient the plan to proceed with a repeat epidural steroid injection for her lumbar radiculopathy, emphasizing the importance of limiting steroid use to prevent adverse effects. We also talked about the potential benefits of physical therapy for her knee osteoarthritis and the need to review her x-ray results to tailor her treatment plan. Patient was informed and verbally consented to the use of an ambient scribe for clinic note documentation during this visit. Patient Instructions: - Schedule the epidural steroid injection for the lumbar region. - Bring a copy of knee x-rays to the next appointment. - Consider starting physical therapy for knee osteoarthritis after TFESI. - Limit the use of steroid injections to avoid potential side effects. Coding Level of Care Code Est Pt Level 3 (17752) Complex EM visit Add On G2211 Diagnoses Lumbar degenerative disc disease M51.36 Lumbar back pain with radiculopathy affecting right lower extremity M54.16 Muscle spasm of back M62.830 Morbid obesity with BMI of 45.0-49.9, adult E66.01; Z68.42 Lumbar spondylosis M47.816 Sacroiliac joint dysfunction of left side M53.3 Sacroiliitis M46.1
[2024-12-24 09:47] VITALS: BP 143/71; PULSE 79; RESP 18; O2SAT 97; BMI 43.4
== END 2024-12-24 10:05 | disposition home or self-care (01) ==
LOC: HO.PMC 09:41
PROVIDERS: PCP Internal Medicine; Visit Provider Registered Nurse Emergency
DX: M51.369 Other intervertebral disc degeneration, lumbar region without mention of lumbar back pain or lower extremity pain (principal); M54.16 Radiculopathy, lumbar region; M62.830 Muscle spasm of back; E66.01 Morbid (severe) obesity due to excess calories; Z68.42 Body mass index [BMI] 45.0-49.9, adult; M47.816 Spondylosis without myelopathy or radiculopathy, lumbar region; M53.3 Sacrococcygeal disorders, not elsewhere classified; M46.1 Sacroiliitis, not elsewhere classified
CPT/HCPCS: 99213

== ENCOUNTER → 2024-12-24 09:40 | Outpatient (BNVA) | payer MEDICAID, SELFPAY | PROVIDERS: PCP Internal Medicine; Visit Provider Registered Nurse Emergency | DX: M54.16 Radiculopathy, lumbar region (principal); M51.360 Other intervertebral disc degeneration, lumbar region with discogenic back pain only; M62.830 Muscle spasm of back; E66.01 Morbid (severe) obesity due to excess calories; Z68.42 Body mass index [BMI] 45.0-49.9, adult; M47.816 Spondylosis without myelopathy or radiculopathy, lumbar region; M53.3 Sacrococcygeal disorders, not elsewhere classified; M46.1 Sacroiliitis, not elsewhere classified | CPT/HCPCS: 99212 ==

== ENCOUNTER 2025-01-04 06:20 | Outpatient (REF) | payer MEDICAID, SELFPAY ==
--- NOTE | ~2025-01-04 | FL_ITS ---
EXAMINATION: FL GUIDANCE ONLY HISTORY: M54.16 - Radiculopathy, lumbar region COMPARISON: None available. TECHNIQUE: Fluoroscopy time: 0.2 minutes. Cumulative Dose: 11.5 mGy. DAP: 0.200 mGym2 Images: 1. FINDINGS: A single fluoroscopic spot film of the lower lumbar spine in the AP projection demonstrates a needle and contrast material in the region of the right L5-S1 facet joint. FL/FL guidance in treatment room IMPRESSION: Fluoroscopy during procedure. Please see procedure report for additional information. Electronically signed by: Jorge Butt MD 01/04/2025 12:16 PM EDT
== END 2025-01-04 06:21 | disposition home or self-care (01) ==
LOC: CF 06:20
PROVIDERS: Visit Provider Anesthesiology
DX: M54.16 Radiculopathy, lumbar region (principal)
CPT/HCPCS: 64483; J2003; J3301; Q9967

== ENCOUNTER 2025-01-04 08:28 | Outpatient (AMB) | payer MEDICAID, SELFPAY ==
[2025-01-04 08:43] VITALS: BP 151/71; PULSE 55; RESP 16; O2SAT 97
--- NOTE | 2025-01-04 08:43 | MHC.OFFVIS ---
Vital Signs 01/04/25 08:43 Weight 253 lb BP 151/71 H Blood Pressure Location Lt brachial Position Sitting Respiration 16 Pulse 55 Pulse Source Pulse Oximeter Pulse Oximetry (%) 97 Oxygen Delivery Method Room Air Intake Visit Reasons: Right L5-S1 TFESI/ ativan Software Deployment Engineer Required: No Allergies lisinopril Adverse Reaction (Unknown, Verified 12/24/24 09:46) Angioedema PFSH Medical History (Updated 06/28/24 @ 10:08 by Miguel Angel Stanton MD) Asthma Hypertension Iron deficiency anemia Surgical History (Updated 03/21/23 @ 13:09 by Carri Savage RN) Hx of breast reduction, elective Social History (Updated 09/26/22 @ 14:21 by Farzaneh Maldonado) Alcohol intake: current Alcohol type: wine Patient Tobacco Use Status: Never used Tobacco Tobacco use type: Cigarette Physical Exam Vital Signs: Last Vital Signs Pulse 55 01/04/25 08:43 Resp 16 01/04/25 08:43 BP 151/71 H 01/04/25 08:43 Pulse Ox 97 01/04/25 08:43 Oxygen Delivery Method Room Air 01/04/25 08:43 Assessment & Plan Assessment & Plan (1) Lumbar back pain with radiculopathy affecting right lower extremity: Code(s): M54.16 - Radiculopathy, lumbar region Category: Medical Plan transforaminal epidural steroid injection L5-S1 on the right. Informed consent was explained to the patient. Risks and benefits were explained to the patient. The patient was explained that performing this procedure under minimal sedation would be more safe compared to the procedure performed under deep sedation. Patient expressed understanding. Patient was brought to the operating room and positioned prone on the operating table. [place] [employer] monitors were applied and patient started to be sedated. However under minimal sedation patient became restless, unable to stand still on the operating table, was wiggling on the operating table throughout the procedure. Unfortunately deep sedation needed to be administered to the patient in the order to complete the procedure. The lower back of the patient was prepped with ChloraPrep and draped with sterile utility towels. However because patient was restless the prep needed to be repeated and draped needed to be reapplied. Finally at the dip level of the sedation patient was moving very minimally. Time-out was performed delineating correct site and side of the procedure. C-arm was brought of the operating field and sq picture of the patient's L5 vertebra demonstrated on the screen. Superior articular process of S1 on the right image was obtained on the screen was tilting C-arm 25 degrees to the right from the sq image of the L5 vertebra. Lateral border of the superior articular process of S1 was chosen as the target of the in needle insertion. 22 gauge 5 in needle was inserted through the skin and that was advancing to were the lateral border of the superior articular process of the S1 on the right in tunnel vision fashion. However when tip of the needle gently contacted the bone of the lateral border of L5 it became clear to us that the entire length of the needle 5 in are in the patient's body and needle is inserted all the way to the hub. The 5 in needle was removed and 7 in needle was obtained on the field. The advancement was repeated with 7 in needle until the tip of the needle gently contacted lateral border of S1 superior articular process. At this moment needle deviated laterally, advanced 2-3 mm, and then tip of the needle deviated medially to were the foramina. When sq image of the L5 lumbar vertebra was obtained on the screen the tip of the needle was in the projection of the spinal column however it was not crossing over mid pedicular line. Injection of the contrast was performed Demonstrating perineural and epidural spread of the contrast. After that injection solution of the lidocaine 1% 4 cc mixed with Kenalog 30 mg was injected into the foramina. After that the needle was withdrawn sterile Band-Aid applied. The patient was taking to the PACU for the recovery. Coding Level of Care Code Procedure Only Diagnoses Lumbar back pain with radiculopathy affecting right lower extremity M54.16
== END 2025-01-04 09:21 | disposition home or self-care (01) ==
LOC: HO.PMCPRC 08:28
PROVIDERS: PCP Internal Medicine; Visit Provider Anesthesiology
DX: M54.16 Radiculopathy, lumbar region (principal)
CPT/HCPCS: 64483

== ENCOUNTER 2025-02-11 12:50 | Outpatient (AMB) | payer MEDICAID, SELFPAY ==
[2025-02-11 13:04] VITALS: BP 198/107; PULSE 71; RESP 16; O2SAT 94; BMI 45.0
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
== END 2025-02-11 13:22 | disposition home or self-care (01) ==
LOC: HO.PMC 12:50
PROVIDERS: PCP Internal Medicine; Visit Provider Registered Nurse Emergency
DX: M51.369 Other intervertebral disc degeneration, lumbar region without mention of lumbar back pain or lower extremity pain (principal); M54.16 Radiculopathy, lumbar region; M62.830 Muscle spasm of back; E66.01 Morbid (severe) obesity due to excess calories; Z68.42 Body mass index [BMI] 45.0-49.9, adult; M47.816 Spondylosis without myelopathy or radiculopathy, lumbar region; M53.3 Sacrococcygeal disorders, not elsewhere classified; M46.1 Sacroiliitis, not elsewhere classified
CPT/HCPCS: 99213

== ENCOUNTER → 2025-02-11 12:50 | Outpatient (BNVA) | payer MEDICAID, SELFPAY | PROVIDERS: PCP Internal Medicine; Visit Provider Registered Nurse Emergency | DX: M54.16 Radiculopathy, lumbar region (principal); M53.3 Sacrococcygeal disorders, not elsewhere classified; M46.1 Sacroiliitis, not elsewhere classified; M47.816 Spondylosis without myelopathy or radiculopathy, lumbar region; M51.369 Other intervertebral disc degeneration, lumbar region without mention of lumbar back pain or lower extremity pain; M62.830 Muscle spasm of back; E66.01 Morbid (severe) obesity due to excess calories; Z68.42 Body mass index [BMI] 45.0-49.9, adult | CPT/HCPCS: 99212 ==